=== PATIENT | male | born 1960 | race Caucasian/White ===

== ENCOUNTER → 2017-05-26 | Day surgery (SDC) | payer OTHER, MEDICAID ==
[~2017-05-26] VITALS: Ht 177.8 cm; Wt 81.9 kg
[~2017-05-26] MED LIST: ACETAMINOPHEN/HYDROcodone 325 MG/5 MG TAB PO PRN; ALLO300T2 PO; CHLORHEXIDINE GLUCONATE 2 % 1 PACK (2 CLOTHS) TOPICAL PRN; CHLORHEXIDINE GLUCONATE 4% SOLN 120 ML BTL TOPICAL SCH; DOXY100C PO; HYDR-3533 PO; INSULIN HUMAN REGULAR 1,000 UNITS/10 ML VIAL SQ PRN; LACTATED RINGER'S 1000 ML IV PRN; LEVO.125 PO; LIDOCAINE 1%/EPINEPHrine 1:100,000 SOLN 50 ML VIAL ONE; LISI-515 PO; METOPROLOL TARTRATE 25 MG TAB PO PRN; NORC5TAB PO; NORV10TA PO; ONDANSETRON HCL 4 MG/2 ML VIAL IV PUSH PRN; OYST500T53 PO; POVIDONE IODINE 5% (ANTISEPSIS KIT) 4 APPLICATIONS EACH NARE PRN; SODIUM CHLORID 0.9% 500 ML IV PRN; SULF1TAB23 PO; SYNT112T PO; ULOR80TA2 OR; ceFAZolin 2 GM PREMIX 50 ML IV SCH
[2017-05-26] MEDS: VANCOMYCIN 1000 MG/NS 250 ML (for <70 kg) IV SCH ×4 (07:12→07:43)
[2017-05-26 07:42] LABS: BASOPHIL # 0.1 TH/MM3 (0-0.2); BASOPHIL % 1.8 % (0.0-2.0); EOSINOPHIL # 0.1 TH/MM3 (0-0.4); EOSINOPHIL % 1.7 % (0.0-4.0); HEMATOCRIT 34.2 % (39.0-51.0); HEMO FLAGS DIFF FINAL; LYMPH % 25.3 % (9.0-44.0); LYMPHOCYTE # 1.6 TH/MM3 (1.0-4.8); MEAN CORPUSCULAR HEMOGLOBIN 27.5 PG (27.0-34.0); MEAN CORPUSCULAR HGB CONC 32.4 % (32.0-36.0); MONO % 8.5 % (0.0-8.0); NEUT % 62.7 % (16.0-70.0); PLATELET COUNT 150 TH/MM3 (150-450); RED BLOOD COUNT 4.02 MIL/MM3 (4.50-5.90); RED CELL DISTRIBUTION WIDTH 16.1 % (11.6-17.2); WHITE BLOOD COUNT 6.3 TH/MM3 (4.0-11.0)
--- NOTE | 2017-05-26 07:50 | PD.OP ---
cc: Alvaro Thompson MD Operative Report Date of Surgery: May 26, 2017 Preoperative Diagnosis: Painful hardware right tibia Postoperative Diagnosis: Procedure: Removal of deep hardware right tibia Anesthesia: Local Surgeon: Alvaro Thompson Parking Lot Attendant And Cashier(s): FRANCINE Fry PA-C Operation and Findings: Dino is well-known to me from treatment of right tibia fracture. He presented to clinic with painful hardware of the right tibia. One of the screw heads was found to be prominent. Informed consent was obtained for removal of hardware. Patient was found to have significant hypotension this morning. Patient was brought to the operating room. The area around the prominent screw head was cleaned with alcohol followed by DuraPrep. The area was draped in the usual sterile fashion. Timeout procedure was performed. Local anesthetic was now infiltrated around the screw. Procedure began with a incision directly over the screw head. Subcutaneous tissue was dissected bluntly. The screw head was identified. Using the appropriate screwdriver, the screw was now removed. The incision was now closed with 3-0 nylon. Dressings were applied. Patient was awakened and transferred to recovery room in stable condition. Alvaro Thompson MD May 26, 2017 07:50
[2017-05-26 08:36] VITALS: BP 104/48; PULSE 82; RESP 20; TEMP 98.6; O2SAT 100
--- NOTE | 2017-05-26 09:20 | PD.ORT.PN ---
Subjective Subjective Remarks Surgery complete and transferred back to same day Objective Vitals Vital Signs Date Time Temp Pulse Resp B/P (MAP) Pulse Ox O2 Delivery O2 Flow Rate FiO2 05/26/17 08:36 98.6 82 20 104/48 (66) 100 Room Air 05/26/17 07:50 98.8 76 20 112/47 (68) 99 Room Air 05/26/17 06:10 97.8 93 16 71/44 (53) 100 Result Diagram: 05/26/17 0600 Procedures Removal of painful hardware right proximal tibia Objective Remarks Clean dry dressings intact over right tibia. Good capillary refills in distal pulses Assessment & Plan Assessment and Plan Removal of hardware right superior tibia Discharge to home today Follow-up with Dr. Thompson or PA in 2 weeks Lauri Asencio Jr. May 26, 2017 09:20
== END | disposition home or self-care (01) ==
LOC: HSDC 05:11
PROVIDERS: ATTEND Orthopaedic Surgery Orthopaedic Trauma
DX: T84.84XA Pain due to internal orthopedic prosthetic devices, implants and grafts, initial encounter (principal); Y83.1 Surgical operation with implant of artificial internal device as the cause of abnormal reaction of the patient, or of later complication, without mention of misadventure at the time of the procedure; I10 Essential (primary) hypertension
CPT/HCPCS: 01392; 20680; 85025; J3370; J7050; J7120

== ENCOUNTER 2017-09-29 09:22 | Emergency (ER) | payer MEDICAID ==
[~2017-09-29] VITALS: Ht 177.8 cm; Wt 89.1 kg
[~2017-09-29 09:22] MED LIST changes: -ACETAMINOPHEN/HYDROcodone 325 MG/5 MG TAB PO PRN; +CALC250 PO; -CHLORHEXIDINE GLUCONATE 2 % 1 PACK (2 CLOTHS) TOPICAL PRN; -CHLORHEXIDINE GLUCONATE 4% SOLN 120 ML BTL TOPICAL SCH; +HYDR-3516 PO; -INSULIN HUMAN REGULAR 1,000 UNITS/10 ML VIAL SQ PRN; -LACTATED RINGER'S 1000 ML IV PRN; -LEVO.125 PO; -LIDOCAINE 1%/EPINEPHrine 1:100,000 SOLN 50 ML VIAL ONE; -METOPROLOL TARTRATE 25 MG TAB PO PRN; -NORV10TA PO; -ONDANSETRON HCL 4 MG/2 ML VIAL IV PUSH PRN; -POVIDONE IODINE 5% (ANTISEPSIS KIT) 4 APPLICATIONS EACH NARE PRN; -SODIUM CHLORID 0.9% 500 ML IV PRN; -ULOR80TA2 OR; -ceFAZolin 2 GM PREMIX 50 ML IV SCH
[2017-09-29 09:24] VITALS: BP 140/79; PULSE 92; RESP 16; TEMP 98.2; O2SAT 96
[2017-09-29] MEDS ORDERED: VANCOMYCIN INJ 1,000 MG in SODIUM CHLOR 0.9% 250 ML INJ 250 ML IV ONE (09:45)
[2017-09-29] MEDS ORDERED: TRAM50 PO (09:45)
[2017-09-29] MEDS ORDERED: BACT800T5 PO (09:45)
--- NOTE | 2017-09-29 09:46 | PD ---
HPI . Elbow swelling Chief Complaint: Skin Problem Time Seen by Provider: 09:33 Travel History International Travel<30 days: No Contact w/Intl Traveler<30days: No Traveled to known affect area: No History of Present Illness HPI This patient presents with a chief complaint of swelling and drainage from his left elbow. He states that he bumped his elbow back in June. He states it swelled up at the time but then got better. Since that time has had gradual swelling. He states that it started draining a purulent material over a week ago. It has continued to drain the purulent material and now the pus is blood tinged. He denies fever. He states that he's been calling his primary care doctor to try to get in to see him in the past week but has not been successful. He subsequently presents to us for evaluation and treatment. He rates his elbow pain at 6/10. PFSH Past Medical History Arthritis: Yes (and gout, bilateral elbows, hands feet) Asthma: No Autoimmune Disease: No Blood Disorders: No Heart Rhythm Problems: No Cancer: No Cardiovascular Problems: No High Cholesterol: Yes (hx of) Chemotherapy: No Chest Pain: No Congestive Heart Failure: No COPD: No Cerebrovascular Accident: No Diabetes: No Diminished Hearing: No Endocrine: Yes Gastrointestinal Disorders: No GERD: No Glaucoma: No Gout: Yes Genitourinary: No Headaches: No Hepatitis: No Hiatal Hernia: No Hypertension: Yes Immune Disorder: No Implanted Vascular Access Dvce: Yes Kidney Stones: No Musculoskeletal: Yes (Gout) Neurologic: No Psychiatric: No Reproductive: No Respiratory: No Migraines: No Myocardial Infarction: No Radiation Therapy: No Renal Failure: No Seizures: No Sleep Apnea: No Thyroid Disease: Yes Ulcer: Yes Tetanus Vaccination: < 5 Years Past Surgical History Abdominal Surgery: Yes (hernia repair) AICD: No Appendectomy: No Arteriovenous Shunt: No Body Medical Devices: rods in right leg Cardiac Surgery: No Cholecystectomy: No Ear Surgery: No Endocrine Surgery: No Eye Surgery: No Genitourinary Surgery: No Gynecologic Surgery: No Insulin Pump: No Joint Replacement: No Neurologic Surgery: No Oral Surgery: No Pacemaker: No Thoracic Surgery: No Other Surgery: Yes (HERNIA REPAIR) Social History Alcohol Use: No Tobacco Use: No Substance Use: No Allergies-Medications (Allergen,Severity, Reaction): Coded Allergies: acetaminophen (Verified Allergy, Severe, redness itching, 09/29/17) carisoprodol (Verified Allergy, Severe, Itching, 09/29/17) oxycodone (Verified Allergy, Severe, redness itching, 09/29/17) Reported Meds & Prescriptions Reported Meds & Active Scripts Active Hydrocodone-Acetaminophen 5-325 mg Tab 1 Tab PO Q8HR PRN Synthroid (Levothyroxine Sodium) 112 Mcg Tab 112 Mcg PO DAILY@0600 Reported Allopurinol 300 Mg Tab 300 Mg PO DAILY Lisinopril 20 Mg Tab 20 Mg PO DAILY Review of Systems Except as stated in HPI: all other systems reviewed are Neg General / Constitutional: No: Fever, Chills Physical Exam Narrative GENERAL: Awake and alert and in no acute distress. SKIN: Warm and dry. The left elbow has necrotic skin over the olecranon. There was a firm, irregular, white mass in the subcutaneous tissue. As I was examining this, the mass came out. It appears to be inspissated pus. Once this plug was removed, the area was wide open measuring about 3 cm in diameter. He continued to drain pus. A culture was obtained. HEAD: Normocephalic/atraumatic. EYES: Pupils are equal. Extraocular movements are intact. Distally NECK: Normal range of motion. RESPIRATORY: Nonlabored respirations. MUSCULOSKELETAL: Atraumatic. NEUROLOGICAL: Nonfocal. PSYCHIATRIC: Appropriate mood and affect. Data Data Last Documented VS Vital Signs Date Time Temp Pulse Resp B/P (MAP) Pulse Ox O2 Delivery O2 Flow Rate FiO2 09/29/17 09:24 98.2 92 16 140/79 (99) 96 Orders Orders Wound Culture And Gram Stain (09/29/17 09:33) Wound Care (09/29/17 09:33) Vancomycin Inj (Vancomycin Inj) (09/29/17 09:45) MDM Medical Decision Making Medical Screen Exam Complete: Yes Emergency Medical Condition: Yes Differential Diagnosis My differential diagnosis closed but is not limited to abscess, cyst, lipoma Narrative Course This patient presented with a mass on his left elbow which is draining purulent material. He has septic bursitis of the left elbow which has spontaneously drained. He is being treated here with vancomycin 1 g IV. He will be discharged on Bactrim. Local wound care. Return in 2 days for follow-up. I have taken a picture of his elbow with his cell phone camera for the purposes of follow-up. Diagnosis Primary Impression: Septic bursitis of elbow Qualified Codes: M71.122 - Other infective bursitis, left elbow Patient Instructions: Abscess (ED), General Instructions Med/Other Pt SpecificInfo: Prescription(s) given Scripts Tramadol (Ultram) 50 Mg Tab 50 MG PO Q4H Y for PAIN, #12 TAB 0 Refills Prov: Jeanette Sprague MD 09/29/17 Sulfamethoxazole-Trimethoprim (Bactrim DS) 800-160 Mg Tab 1 TAB PO BID for Infection, #20 TAB 0 Refills Prov: Jeanette Sprague MD 09/29/17 Disposition: 01 DISCHARGE HOME Condition: Stable Jeanette Sprague MD Sep 29, 2017 09:46
== END 2017-09-29 11:45 | disposition home or self-care (01) ==
LOC: PHED 09:22
DX: M71.122 Other infective bursitis, left elbow (principal); B95.61 Methicillin susceptible Staphylococcus aureus infection as the cause of diseases classified elsewhere; M10.9 Gout, unspecified; E78.00 Pure hypercholesterolemia, unspecified; I10 Essential (primary) hypertension; E07.9 Disorder of thyroid, unspecified
CPT/HCPCS: 86403; 87070; 87186; 96365; 99284; J3370; J7050

== ENCOUNTER 2017-10-02 09:09 | Emergency (ER) | payer MEDICAID ==
[~2017-10-02] VITALS: Ht 177.8 cm; Wt 89.0 kg
[~2017-10-02 09:09] MED LIST changes: +BACT800T5 PO; -CALC250 PO; -DOXY100C PO; -HYDR-3533 PO; -NORC5TAB PO; -OYST500T53 PO; -SULF1TAB23 PO; +TRAM50 PO
[2017-10-02 09:15] VITALS: BP 145/82; PULSE 83; RESP 16; TEMP 98.2; O2SAT 99
--- NOTE | 2017-10-02 09:29 | PD ---
HPI Chief Complaint: Wound/Suture/Staple Re-Check Time Seen by Provider: 09:19 Travel History International Travel<30 days: No Contact w/Intl Traveler<30days: No Traveled to known affect area: No History of Present Illness HPI 49-year-old male that presents to the ED for evaluation of wounds to the left elbow. Patient was seen here for this about 3 days ago and had it drained. Patient had cultures taken. was told to recheck in 48 hours. Patient comes in for recheck. Per patient for the most part still draining but not worse. Follow up with touch. Able to move it fully. Denies any numbness, tingling, weakness. No fevers chills or sweats. Pain is 6 out of 10 with touch in speech and attending. No other medical issues. PFSH Past Medical History Arthritis: Yes (and gout, bilateral elbows, hands feet) Asthma: No Autoimmune Disease: No Blood Disorders: No Heart Rhythm Problems: No Cancer: No Cardiovascular Problems: No High Cholesterol: Yes (hx of) Chemotherapy: No Chest Pain: No Congestive Heart Failure: No COPD: No Cerebrovascular Accident: No Diabetes: No Diminished Hearing: No Endocrine: Yes Gastrointestinal Disorders: No GERD: No Glaucoma: No Gout: Yes Genitourinary: No Headaches: No Hepatitis: No Hiatal Hernia: No Hypertension: Yes Immune Disorder: No Implanted Vascular Access Dvce: Yes Kidney Stones: No Musculoskeletal: Yes (Gout) Neurologic: No Psychiatric: No Reproductive: No Respiratory: No Migraines: No Myocardial Infarction: No Radiation Therapy: No Renal Failure: No Seizures: No Sleep Apnea: No Thyroid Disease: Yes Ulcer: Yes Tetanus Vaccination: < 5 Years Influenza Vaccination: No Past Surgical History Abdominal Surgery: Yes (hernia repair) AICD: No Appendectomy: No Arteriovenous Shunt: No Body Medical Devices: rods in right leg Cardiac Surgery: No Cholecystectomy: No Ear Surgery: No Endocrine Surgery: No Eye Surgery: No Genitourinary Surgery: No Gynecologic Surgery: No Insulin Pump: No Joint Replacement: No Neurologic Surgery: No Oral Surgery: No Pacemaker: No Thoracic Surgery: No Other Surgery: Yes (HERNIA REPAIR) Social History Alcohol Use: No Tobacco Use: No Substance Use: No Allergies-Medications (Allergen,Severity, Reaction): Coded Allergies: acetaminophen (Verified Allergy, Severe, redness itching, 10/02/17) carisoprodol (Verified Allergy, Severe, Itching, 10/02/17) oxycodone (Verified Allergy, Severe, redness itching, 10/02/17) Reported Meds & Prescriptions Reported Meds & Active Scripts Active Ultram (Tramadol HCl) 50 Mg Tab 50 Mg PO Q4H PRN Bactrim DS (Sulfamethoxazole-Trimethoprim) 800-160 Mg Tab 1 Tab PO BID Hydrocodone-Acetaminophen 5-325 mg Tab 1 Tab PO Q8HR PRN Synthroid (Levothyroxine Sodium) 112 Mcg Tab 112 Mcg PO DAILY@0600 Reported Allopurinol 300 Mg Tab 300 Mg PO DAILY Lisinopril 20 Mg Tab 20 Mg PO DAILY Review of Systems Except as stated in HPI: all other systems reviewed are Neg Physical Exam Narrative GENERAL: SKIN: Warm and dry. HEAD: Atraumatic. Normocephalic. EYES: Pupils equal and round. No scleral icterus. No injection or drainage. ENT: No nasal bleeding or discharge. Mucous membranes pink and moist. NECK: Trachea midline. No JVD. CARDIOVASCULAR: Regular rate and rhythm. RESPIRATORY: No accessory muscle use. Clear to auscultation. Breath sounds equal bilaterally. GASTROINTESTINAL: Abdomen soft, non-tender, nondistended. Hepatic and splenic margins not palpable. MUSCULOSKELETAL: Extremities without clubbing, cyanosis, or edema. No obvious deformities. Full range of motion of the upper and lower extremities bilaterally. Patient has an area of purulence on the left elbow shows an opening of about 1 cm in diameter. Purulent material coming out of it. No erythema noted. No masses noted. 2+ pulses bilaterally. Neurovascular intact. NEUROLOGICAL: Awake and alert. No obvious cranial nerve deficits. Motor grossly within normal limits. Five out of 5 muscle strength in the arms and legs. Normal speech. PSYCHIATRIC: Appropriate mood and affect; insight and judgment normal. Data Data Last Documented VS Vital Signs Date Time Temp Pulse Resp B/P (MAP) Pulse Ox O2 Delivery O2 Flow Rate FiO2 10/02/17 09:15 98.2 83 16 145/82 (103) 99 Orders Orders Ed Discharge Order (10/02/17 09:29) MDM Medical Decision Making Medical Screen Exam Complete: Yes Emergency Medical Condition: Yes Medical Record Reviewed: Yes Differential Diagnosis Wound check vs draining abscess vs draining elbow Narrative Course 57 yo male here for recheck of abscess on elbow. Already draining. No sign of acute disease. Cultures checked and grew Staph which is sensitive to the bactrim. Patient was told to continue taking this medication. Follow with PCP. Wound dressing was given here by ED nurse. Patient was told to follow up with PCP. See ED worsening symptoms. Diagnosis Primary Impression: Open wound of left elbow Qualified Codes: S51.002A - Unspecified open wound of left elbow, initial encounter Patient Instructions: General Instructions Additional Instructions: Follow up with PCP. Continue changing dressings. Continue antibiotic. See ED if worsening symptoms or no improvement in 1 week. Med/Other Pt SpecificInfo: Prescription(s) given, Wound Care Disposition: DISCHARGE HOME Condition: Stable Derick Whitney Oct 02, 2017 09:29
== END 2017-10-02 09:39 | disposition home or self-care (01) ==
LOC: PHEFT 09:09
DX: Z48.00 Encounter for change or removal of nonsurgical wound dressing (principal)
CPT/HCPCS: 99281